=== PATIENT | male | born 1930 | race Caucasian/White ===

== ENCOUNTER 2016-07-05 05:46 | Emergency (ER) | payer OTHER, BC ==
[~2016-07-05 05:46] MED LIST: ARICEPT10 MG PO; ARIMIDEX1 MG PO; ASPIRIN EC LOW81 MG PO; BACTRIM1 TAB PO; CO Q10100 MG PO; COREG3.125 MG PO; COUMADIN1 MG PO; COUMADIN7.5 MG PO; DHEA PO; ENZYME DIGEST PO; FERROUS SULFAT324 M1 PO; FOLIC ACID1 MG PO; FUROSEMIDE20 MG PO; IPRATROPIUM BROMIDE/ IN; ISOSORBIDE MONO30 MG PO; LEVO-T25 MCG; LOVASTATIN40 MG PO; MULTIVITAMIN1 TAB PO; NEBULIZER; NITROSTAT0.4 MG SL; OMEGA 31000 MG PO; PREGNENOLONE PO; PRIMADONE PO; PRINIVIL10 MG PO; PROBIOTI1 PO; PULMICORT0.5 MG/2 M IN; SYNTHROID88 MCG PO; TESTIM1 % TOP; VITAMIN D-31000 UNIT PO; [UNRECOGNIZED DRUG - OTHER] PO; [UNRECOGNIZED DRUG - OTHER] PO; [UNRECOGNIZED DRUG - OTHER] PO
--- NOTE | 2016-07-05 08:02 | ED NURSING NOTES ---
Clinical Report - Nurses [facility] [address] [place] [address] 07/05/2016 5:46 Patient: RISHABH BAZZI TRIAGE Triage time 05:51. Acuity: LEVEL 3. Chief Complaint: FALL. 06:22. Alert. SEPSIS SCREEN: Sepsis Screen. Negative (no infection suspected/documented). JESSICA COMA SCORE: [place] Coma Scale: 15- eyes open spontaneously (4); best verbal response- oriented x 4 (5); best motor response- obeys commands (6). --06:22 Charanjit Caba R.N. 05:51 07/05/16. BP: 135/62. HR: 62. RR: 17. O2 saturation: 98%. Pain level now: cannot qualify. --06:22 Charanjit Caba R.N. Weight: 65.7 kg stated. Height/Length: 62 inches Per Patient. BMI: 26.5. --06:22 Charanjit Caba R.N. Medications Anastrozole Oral (Tablet 1 mg) 1/2 tablet, daily. Aricept Oral (Tablet 23 mg) 1 tablet, daily. Carvedilol Phosphate ER Oral 3.125mh, 2 x daily. Co Q 10 Oral (Capsule 100 mg), daily. DHEA Oral 60mg. Enzyme Digest Oral. Folic Acid Oral (Tablet 400 mcg) 1 tablet, daily. Furosemide Oral (Tablet 20 mg) 1 tablet, daily. Isosorbide Mononitrate ER Oral 30mg take 1/2 tab , daily. Levothyroxine Sodium Oral (Tablet 25 mcg) 1 tablet. Lisinopril Oral (Tablet 10 mg) 1/2 tablet, 2x a day. Lovastatin Oral (Tablet 40 mg) 1-1/2 tablets, daily. Melatonin Oral (Tablet 5 mg) 1 tablet, qhs. --06:01 Charanjit Caba RAndreaN. MiraLax Oral. Multivit. Nitroglycerin Translingual 1 tab, as needed. [place] xl. Optimal prostrate. Optimal relief. Pregnenlone 100mg, 2x a day. Primadone 25mg , daily (in am; 100mg in pm). Probiotic. Testosterone Enanthate Intramuscular. TMG (Trimethylglycine) Oral. Vessel protection. Vitamin D Oral (Capsule 1000 unit) 1 capsule, daily. Warfarin Sodium Oral 5 mg, daily (7.5mg // 5mg all other days). --06:01 Charanjit Caba R.N. Calcium Oral 1000mg , 2 x daily. --06:04 Charanjit Caba R.N. Cranberry Extract Oral. --06:05 Charanjit Caba R.N. Home oxygen . --08:39 Jake Gutierrez R.N. Medication/allergy information source: the patient's family. --06:22 Charanjit Caba R.N. Allergies Labetalol HCl. --06:01 Charanjit Caba R.N. History Arrived by private vehicle. Historian: patient. Accompanied by family. Primary physician (). ( Patient on home 02). Location of injuries: back and left elbow. ( Family reports that patient was getting onto the toilet and fell backwards onto the toilet and hit the toilet paper rodas yesterday in the AM , now family says he has a scratch on his back and his left elbow is swollen). Treatment GRAIN MANAGER: None. PAST MEDICAL HX: Tetanus status: up-to-date. Immunizations: up-to-date. SOCIAL HX: Former smoker, end date 1966. Occasional alcohol use. No drug use. No infectious disease exposure. ABUSE ASSESSMENT: No report of abuse. NUTRITIONAL RISK ASSESSMENT: The nutritional risk assessment revealed no deficiencies. LEARNING NEEDS ASSESSMENT: The learning needs assessment revealed no barriers. FALL RISK ASSESSMENT: Fall risk assessment completed. Risk factors identified include patient age greater than 65 years, history of fall and impairment of mobility. Fall interventions initiated. Patient placed on stretcher. Side rails up x2. Call light in reach of patient and family. Instructed not to get up without assistance. FUNCTIONAL ASSESSMENT: Functional assessment performed: requires assistance with the activities of daily living; uses walker; wears glasses; cognitive impairment- senile dementia. SKIN INTEGRITY ASSESSMENT: Skin integrity risk assessment completed. No skin integrity risk identified. --06:22 Charanjit Caba R.N. PROBLEMS: UTI - Urinary Tract Infection. Congestive Heart Failure. Acute Myocardial Infarction. Renal Insufficiency. CVA - Cerebrovascular Accident. Hypercholesterolemia. TIA - Transient Ischemic Attack. Fecal Impaction. Hypertension. --06:06 Charanjit Caba R.N. ADDITIONAL SURGERIES: Dental Surgery. Hernia Repair. Kidney stents. Pacemaker. --06:06 Charanjit Caba R.N. Interventions ID band on patient. To treatment room. --06:22 Charanjit Caba R.N. PHYSICAL ASSESSMENT 06:20. To room via wheelchair. Patient gowned. GENERAL / NEURO / PSYCH: Alert. RESPIRATORY: Respirations not labored. ( on 02 @ 2lts). EXTREMITIES: Neuro-vascular status intact to the extremity. Left elbow: swelling. SKIN: Skin intact. Skin is warm and dry. BACK: ( small scratch mid back). --06:20 Charanjit Caba R.N. NURSING PROGRESS NOTES 05:56 As pt was being assisted out of the wheelchair, pt was incontinant so was helped to the bathroom where pt's daughter helped pt get cleaned up. --05:58 Charanjit Caba R.N. 06:07. Two patient identifiers checked. Call light placed in reach. Side rails up x 2. Bed placed in lowest position. Brakes of bed on. Patient ready for evaluation- chart flagged. --06:25 Charanjit Caba R.N. Patient ID band checked for patient name and birthdate: patient confirmed. Blood samples drawn from the right antecubital space with syringe and 21g butterfly by tech per protocol ; labeled in presence of the patient and sent to lab: rainbow set. --06:36 Richard Miles ER Awning Craftsperson 07:16. Care transferred and report given (Nuris YEAGER). --07:27 Charanjit Caba R.N. 06:30 07/05/16. BP: 124/52. HR: 65. O2 saturation: 99% on nasal cannula at 2 liters/minute. --08:44 Jake Gutierrez R.N. 07:00 07/05/16. BP: 122/51. HR: 65. RR: 20. O2 saturation: 98% on nasal cannula at 2 liters/minute. --08:45 Jake Gutierrez R.N. 07:30 07/05/16. BP: 139/54. HR: 65. RR: 20. O2 saturation: 98% on nasal cannula at 2 liters/minute. --08:45 Jake Gutierrez R.N. DISPOSITION / DISCHARGE 08:39 07/05/16. Departure time: 829. Condition at departure: unchanged and stable. No learning barriers present. Discharge instructions provided and reviewed with the family. Family verbalized understanding. Written instructions provided in Danish. The patient was discharged by the physician. He was discharged home and accompanied by family. He left the Emergency Department in a wheelchair and via private vehicle. Family member driving. --08:40 Jake Gutierrez R.N. 08:15 07/05/16. BP: 126/56. HR: 65. RR: 20. O2 saturation: 96% on nasal cannula at 2 liters/minute. Temp: 98.5 F (oral). Quintanilla-Aburto pain scale: 4/10. --08:40 Jake Gutierrez R.N. Locked/Released at 07/06/2016 2:35 by Charanjit Caba R.N.
--- NOTE | 2016-07-05 08:02 | ED ORDER SUMMARY ---
..... Patient: RISHABH BAZZI OrderSheet [facility] VisitID: [id number] [address] [place] [address] 85y, M Registration Date/Time: 07/05/2016 ORDER SHEET Weight: 65.7 kg (stated) Allergies: Labetalol HCl GENERAL ORDERS: PT with INR Urgent (06:21 07/05/2016 Parvin JIMENEZ) (6:36 [facility] Manager Occupational) MEDICATION ORDERS: IV FLUIDS: ORDER SHEET NOTES: [Electronically signed by Charanjit Caba R.N. (02:35 07/06/2016)] [Electronically signed by Zaida Busby MD (16:31 07/10/2016)] [Electronically locked/signed by Charanjit Caba R.N. (02:35 07/06/2016)]
--- NOTE | 2016-07-05 08:02 | ED ORDER SUMMARY ---
..... Patient: RISHABH BAZZI OrderSheet [facility] VisitID: [id number] [address] [place] [address] 85y, M Registration Date/Time: 07/05/2016 ORDER SHEET Weight: 65.7 kg (stated) Allergies: Labetalol HCl GENERAL ORDERS: PT with INR Urgent (06:21 07/05/2016 Parvin JIMENEZ) (6:36 [facility] [place] [employer]) MEDICATION ORDERS: IV FLUIDS: ORDER SHEET NOTES: [Electronically signed by Charanjit Caba R.N. (02:35 07/06/2016)] [Electronically signed by Zaida Busby MD (16:31 07/10/2016)] [Electronically locked/signed by Charanjit Caba R.N. (02:35 07/06/2016)]
--- NOTE | 2016-07-05 08:02 | ED CLINICAL REPORT ---
Clinical Report - Physicians/Mid Levels [facility] [address] [place] [address] 07/05/2016 5:46 Patient: RISHABH BAZZI Time Seen: 06:07. Arrived- By private vehicle. Historian- patient. HISTORY OF PRESENT ILLNESS Chief Complaint: Injury to the left elbow. The injury happened yesterday. The patient sustained a direct blow. Occurred at home. Patient is experiencing mild pain. No other injury. ( Family states they noticed a swollen area on the tip of pt's elbow today. Pt states he has had full ROM. Pt is on Coumadin.). REVIEW OF SYSTEMS The patient has had swelling. No tingling, numbness, weakness, suspected foreign body or skin laceration. All systems otherwise negative, except as recorded above. PAST HISTORY Problems: Congestive Heart Failure. Acute Myocardial Infarction. Renal Insufficiency. CVA - Cerebrovascular Accident. Tremors. GI Bleeding. Immunizations. Hypercholesterolemia. TIA - Transient Ischemic Attack. Fecal Impaction. Constipation. Hypertension. Dementia. Additional Surgeries: Dental Surgery. Hernia Repair. Kidney stents. Pacemaker. Medications: Cranberry Extract Oral. Calcium Oral 1000mg , 2 x daily. MiraLax Oral. Multivit. Nitroglycerin Translingual 1 tab, as needed. [place] xl. Optimal prostrate. Optimal relief. Pregnenlone 100mg, 2x a day. Primadone 25mg , daily (in am; 100mg in pm). Probiotic. Testosterone Enanthate Intramuscular. TMG (Trimethylglycine) Oral. Vessel protection. Vitamin D Oral (Capsule 1000 unit) 1 capsule, daily. Warfarin Sodium Oral 5 mg, daily (7.5mg M// 5mg all other days). Anastrozole Oral (Tablet 1 mg) 1/2 tablet, daily. Aricept Oral (Tablet 23 mg) 1 tablet, daily. Carvedilol Phosphate ER Oral 3.125mh, 2 x daily. Co Q 10 Oral (Capsule 100 mg), daily. DHEA Oral 60mg. Enzyme Digest Oral. Folic Acid Oral (Tablet 400 mcg) 1 tablet, daily. Furosemide Oral (Tablet 20 mg) 1 tablet, daily. Isosorbide Mononitrate ER Oral 30mg take 1/2 tab , daily. Levothyroxine Sodium Oral (Tablet 25 mcg) 1 tablet. Lisinopril Oral (Tablet 10 mg) 1/2 tablet, 2x a day. Lovastatin Oral (Tablet 40 mg) 1-1/2 tablets, daily. Melatonin Oral (Tablet 5 mg) 1 tablet, qhs. Allergies: Labetalol HCl. SOCIAL HISTORY Never smoker. No alcohol use or drug use. ADDITIONAL NOTES The nursing notes have been reviewed. PHYSICAL EXAM Vital Signs: 07/05/2016 05:51 BP: 135/62. HR: 62. RR: 17. O2 saturation: 98%. Have been reviewed. Appearance: Alert. Oriented X3. No acute distress. Head: Head atraumatic. Eyes: Pupils equal, round and reactive to light. Eyes normal inspection. ENT: Nose normal. Neck: Neck supple. CVS: Pulses normal. Respiratory: No respiratory distress. Skin: Skin intact. Skin warm and dry. Normal skin color. Normal skin turgor. Extremities: Left elbow: mild tenderness and moderate swelling located in the area of the olecranon. Neurovascular intact distally. No erythema, laceration, abrasion, ecchymosis or puncture wound. No foreign body or deformity. No joint effusion or limitation in ROM. Upper extremity otherwise negative. Extremities otherwise negative. Neuro, Vascular and Tendons: Vascular status intact. Sensation intact. Motor intact. Tendon function intact. Neuro: No motor deficit. No sensory deficit. (Grossly intact.). LABS, X-RAYS, AND EKG Laboratory Tests: PT with INR: (EVARISTO: 07/05/2016 06:35) ( MsgRcvd 07/05/2016 06:47) Final results Test Result Flag Units (Reference) INR 2.5 H (0.8-1.2) Low Intensity Therapy: INR 1.5-2.0 PT range 18.5-23.1Mod.Intensity Therapy: INR 2.0-3.0 PT range 23.1-31.5High Intensity Therapy: INR 2.5-3.5 PT range 27.4-35.5High Intensity Therapy 2: INR 3.0-4.0 PT range 31.5-39.3 . Pulse Oximetry: 07/05/2016 05:51 O2 saturation: 98%. (FIO2 - room air). Interpretation: normal. PROGRESS AND PROCEDURES Course of Care: D/w family: there is no evidence of infection. The pt has full ROM of his elbow without significant discomfort, and I do not believe the pt has a fx. Pt has an olecranon bursitis, which may have arisen from the minor trauma to the elbow, combined with the pt's anticoagulated status. INR today is 2.5. No emergent condition identified. Patient and family counseled in person regarding the patient's stable condition, test results, diagnosis and need for follow-up. Concerns were addressed. Old medical records reviewed. Disposition: Discharged. Condition: stable. CLINICAL IMPRESSION Traumatic left olecranon bursitis. No bursitis with infection. INSTRUCTIONS Apply ice for 15-20 minutes three times a day as needed and until better. Don't apply ice directly to skin and don't use while asleep. (Your INR is 2.5.). Warnings: GENERAL WARNINGS: Return or contact your physician immediately if your condition worsens or changes unexpectedly, if not improving as expected, or if other problems arise. Your Current Medications: CONTINUE TAKING THE FOLLOWING MEDICATIONS: Anastrozole Oral : Tablet 1 mg, 1/2 tablet daily. Aricept Oral : Tablet 23 mg, 1 tablet daily. Calcium Oral : 1000mg 2 x daily. Carvedilol Phosphate ER Oral : 3.125mh 2 x daily. Co Q 10 Oral : Capsule 100 mg, daily. Cranberry Extract Oral. DHEA Oral : 60mg. Enzyme Digest Oral. Folic Acid Oral : Tablet 400 mcg, 1 tablet daily. Furosemide Oral : Tablet 20 mg, 1 tablet daily. Isosorbide Mononitrate ER Oral : 30mg take 1/2 tab daily. Levothyroxine Sodium Oral : Tablet 25 mcg, 1 tablet. Lisinopril Oral : Tablet 10 mg, 1/2 tablet 2x a day. Lovastatin Oral : Tablet 40 mg, 1-1/2 tablets daily. Melatonin Oral : Tablet 5 mg, 1 tablet qhs. MiraLax Oral. Multivit*. Nitroglycerin Translingual : 1 tab, prn. [place] xl*. Optimal prostrate*. Optimal relief*. Pregnenlone* : 100mg 2x a day. Primadone* : 25mg daily, in am; 100mg in pm. Probiotic*. Testosterone Enanthate Intramuscular. TMG (Trimethylglycine) Oral. Vessel protection*. Vitamin D Oral : Capsule 1000 unit, 1 capsule daily. Warfarin Sodium Oral : 5 mg daily, 7.5mg // 5mg all other days. Follow-up: Follow up with your doctor as needed. Understanding of the discharge instructions verbalized by patient. (Electronically signed by Zaida Busby MD 07/10/2016 16:31)
--- NOTE | 2016-07-10 16:31 | ED MED RECONCILIATION SUMMARY ---
Patient: RISHABH BAZZI Medication Reconciliation Report [facility] VisitID: [id number] [place] [address] 85y, M Registration Date/Time: 07/05/2016 Weight: 65.7 kg Height/Length: 62 in. BMI: 26.5 ALLERGIES: Labetalol HCl The patient's Home Medications are listed below: CONTINUE TAKING THE FOLLOWING MEDICATIONS: Anastrozole Oral (1 mg) 1/2 tablet, daily Aricept Oral (23 mg) 1 tablet, daily Calcium Oral 1000mg , 2 x daily Carvedilol Phosphate ER Oral 3.125mh, 2 x daily Co Q 10 Oral (100 mg), daily Cranberry Extract Oral DHEA Oral 60mg Enzyme Digest Oral Folic Acid Oral (400 mcg) 1 tablet, daily Furosemide Oral (20 mg) 1 tablet, daily Isosorbide Mononitrate ER Oral 30mg take 1/2 tab , daily Levothyroxine Sodium Oral (25 mcg) 1 tablet Lisinopril Oral (10 mg) 1/2 tablet, 2x a day Lovastatin Oral (40 mg) 1-1/2 tablets, daily Melatonin Oral (5 mg) 1 tablet, qhs MiraLax Oral Multivit Nitroglycerin Translingual 1 tab [place] xl Optimal prostrate Optimal relief Pregnenlone 100mg, 2x a day Primadone 25mg , daily, in am; 100mg in pm Probiotic Testosterone Enanthate Intramuscular TMG (Trimethylglycine) Oral Vessel protection Vitamin D Oral (1000 unit) 1 capsule, daily Warfarin Sodium Oral 5 mg, daily, 7.5mg M/W/F5mg all other days THE FOLLOWING MEDICATIONS NEED TO BE RECONCILED: Home oxygen The source(s) of the original Home Medication information: patient's family member The following Medications were given to the patient in the Emergency Department: None. The following Medications were prescribed to the patient: None.
--- NOTE | 2016-07-10 16:31 | ED MAR SUMMARY ---
..... Medication Administration Record [facility] [address] [place] [place] [address] Patient: RISHABH BAZZI Visit ID: [id number] 85y, M Weight: 65.7 kg Height/Length: 62 in BMI: 26.5 ALLERGIES: Labetalol HCl
--- NOTE | 2016-07-10 16:31 | ED DISCHARGE INSTRUCTIONS ---
Patient: RISHABH BAZZI General Instructions [facility] VisitID: [id number] [place] [address] 85y, M Registration Date/Time: 07/05/2016 Traumatic left olecranon bursitis. No bursitis with infection. INSTRUCTIONS Apply ice for 15-20 minutes three times a day as needed and until better. Don't apply ice directly to skin and don't use while asleep. (Your INR is 2.5.). Warnings: GENERAL WARNINGS: Return or contact your physician immediately if your condition worsens or changes unexpectedly, if not improving as expected, or if other problems arise. Your Current Medications: CONTINUE TAKING THE FOLLOWING MEDICATIONS: Anastrozole Oral : Tablet 1 mg, 1/2 tablet daily. Aricept Oral : Tablet 23 mg, 1 tablet daily. Calcium Oral : 1000mg 2 x daily. Carvedilol Phosphate ER Oral : 3.125mh 2 x daily. Co Q 10 Oral : Capsule 100 mg, daily. Cranberry Extract Oral. DHEA Oral : 60mg. Enzyme Digest Oral. Folic Acid Oral : Tablet 400 mcg, 1 tablet daily. Furosemide Oral : Tablet 20 mg, 1 tablet daily. Isosorbide Mononitrate ER Oral : 30mg take 1/2 tab daily. Levothyroxine Sodium Oral : Tablet 25 mcg, 1 tablet. Lisinopril Oral : Tablet 10 mg, 1/2 tablet 2x a day. Lovastatin Oral : Tablet 40 mg, 1-1/2 tablets daily. Melatonin Oral : Tablet 5 mg, 1 tablet qhs. MiraLax Oral. Multivit*. Nitroglycerin Translingual : 1 tab, prn. [place] xl*. Optimal prostrate*. Optimal relief*. Pregnenlone* : 100mg 2x a day. Primadone* : 25mg daily, in am; 100mg in pm. Probiotic*. Testosterone Enanthate Intramuscular. TMG (Trimethylglycine) Oral. Vessel protection*. Vitamin D Oral : Capsule 1000 unit, 1 capsule daily. Warfarin Sodium Oral : 5 mg daily, 7.5mg // 5mg all other days. Follow-up: Follow up with your doctor as needed. Understanding of the discharge instructions verbalized by patient. ADDITIONAL INFORMATION Bursitis The larger joints of the body are surrounded bybursa. These are small, flat fluid-filled sacs which help the gliding motion of the muscles and tendons over the joints. Bursitis is an inflammation of the bursa due to injury, overuse of the joint, or infection of the bursa itself. Symptoms include pain and tenderness over a joint that is made worse with movement. Bursitis is treated with an anti-inflammatory medicine and by resting the joint. More severe cases require injection of medicine directly into the bursa. Home Care: Apply an ice pack (ice cubes in a plastic bag, wrapped in a towel) over the injured area for 20 minutes every 1-2 hours the first day. Continue this 3-4 times a day until the pain and swelling improves. Rest the painful joint and protect it from movement. This will allow the inflammation to heal faster. You may take ibuprofen (Motrin, Advil) or naproxen (Aleve, Naprosyn) to treat pain and inflammation, unless another medicine was prescribed. If you can't take these medicines, acetaminophen (Tylenol) may help with the pain, but does not treat inflammation. [NOTE: If you have chronic liver or kidney disease or ever had a stomach ulcer or GI bleeding, talk with your doctor before using these medicines.] As your symptoms improve, begin gradual motion at the joint. Do not overuse the joint, which may cause the symptoms to flare up again. Follow Up With Your Doctor If Not Improving After Three Days Of Treatment. Get Prompt Medical Attention If Any Of The Following Occur: Redness over the painful area Increasing pain or swelling at the joint Fever of 100.4F (38C) or higher, or as directed by your healthcare provider You have been given the following additional information: Bursitis (Electronically signed by Zaida Busby MD 07/10/2016 16:31)
--- NOTE | 2016-07-10 16:31 | ED MAR SUMMARY ---
..... Medication Administration Record [facility] [address] [place] [place] [address] Patient: RISHABH BAZZI Visit ID: [id number] 85y, M Weight: 65.7 kg Height/Length: 62 in BMI: 26.5 ALLERGIES: Labetalol HCl
--- NOTE | 2016-07-10 16:31 | ED MED RECONCILIATION SUMMARY ---
Patient: RISHABH BAZZI Medication Reconciliation Report [facility] VisitID: [id number] [place] [address] 85y, M Registration Date/Time: 07/05/2016 Weight: 65.7 kg Height/Length: 62 in. BMI: 26.5 ALLERGIES: Labetalol HCl The patient's Home Medications are listed below: CONTINUE TAKING THE FOLLOWING MEDICATIONS: Anastrozole Oral (1 mg) 1/2 tablet, daily Aricept Oral (23 mg) 1 tablet, daily Calcium Oral 1000mg , 2 x daily Carvedilol Phosphate ER Oral 3.125mh, 2 x daily Co Q 10 Oral (100 mg), daily Cranberry Extract Oral DHEA Oral 60mg Enzyme Digest Oral Folic Acid Oral (400 mcg) 1 tablet, daily Furosemide Oral (20 mg) 1 tablet, daily Isosorbide Mononitrate ER Oral 30mg take 1/2 tab , daily Levothyroxine Sodium Oral (25 mcg) 1 tablet Lisinopril Oral (10 mg) 1/2 tablet, 2x a day Lovastatin Oral (40 mg) 1-1/2 tablets, daily Melatonin Oral (5 mg) 1 tablet, qhs MiraLax Oral Multivit Nitroglycerin Translingual 1 tab [place] xl Optimal prostrate Optimal relief Pregnenlone 100mg, 2x a day Primadone 25mg , daily, in am; 100mg in pm Probiotic Testosterone Enanthate Intramuscular TMG (Trimethylglycine) Oral Vessel protection Vitamin D Oral (1000 unit) 1 capsule, daily Warfarin Sodium Oral 5 mg, daily, 7.5mg M/W/F5mg all other days THE FOLLOWING MEDICATIONS NEED TO BE RECONCILED: Home oxygen The source(s) of the original Home Medication information: patient's family member The following Medications were given to the patient in the Emergency Department: None. The following Medications were prescribed to the patient: None.
== END 2016-07-05 08:30 | disposition home or self-care (01) ==
LOC: ED SRH 05:46
DX: M70.22 Olecranon bursitis, left elbow (principal); Z86.73 Personal history of transient ischemic attack (TIA), and cerebral infarction without residual deficits; W18.12XA Fall from or off toilet with subsequent striking against object, initial encounter; Y93.89 Activity, other specified; Y99.9 Unspecified external cause status; Y92.012 Bathroom of single-family (private) house as the place of occurrence of the external cause; I10 Essential (primary) hypertension; Z79.899 Other long term (current) drug therapy; Z88.8 Allergy status to other drugs, medicaments and biological substances; Z79.01 Long term (current) use of anticoagulants
CPT/HCPCS: 94060

== ENCOUNTER 2016-11-01 22:02 | Emergency (ER) | payer OTHER, BC ==
--- NOTE | 2016-11-02 01:05 | ED ORDER SUMMARY ---
..... Patient: RISHABH BAZZI OrderSheet [facility] VisitID: [id number] [place] [address] 86y, M Registration Date/Time: 11/01/2016 ORDER SHEET Weight: 65.7 kg (stated) Allergies: Labetalol HCl GENERAL ORDERS: CBC w Diff Urgent (22:32 11/01/2016 Parvin JIMENEZ) (Ack 22:38 AMcQuoid ER Tech1) (22:59 KPage-Kuchan R.N.) CMP Urgent (22:32 11/01/2016 Parvin JIMENEZ) (Ack 22:38 AMcQuoid ER Tech1) (22:59 KPage-Kuchan R.N.) UA-Culture if indicated Urgent (22:32 11/01/2016 Parvin JIMENEZ) (Ack 22:38 AMcQuoid ER Tech1) (22:59 KPage-Kuchan R.N.) Lipase Urgent (22:32 11/01/2016 Parvin JIMENEZ) (Ack 22:38 AMcQuoid ER Tech1) (22:58 KPage-Kuchan R.N.) PT with INR Urgent (22:57 11/01/2016 Parvin JIMENEZ) (Ack 22:58 AMcQuoid ER Tech1) (23:00 KPage-Kuchan R.N.) TSH Urgent (22:57 11/01/2016 Parvin JIMENEZ) (Ack 22:58 AMcQuoid ER Tech1) (23:00 KPage-Kuchan R.N.) CT Abd/Pel w Cont (No) (N/A) Urgent (23:51 11/01/2016 Parvin JIMENEZ) (Cancelled: Other23:51 Parvin JIMENEZ) CT Abd/Pel wo Cont Urgent (23:52 11/01/2016 Parvin JIMENEZ) (Ack 0:00 AMcQuoid ER Tech1) (0:18 RFay) MEDICATION ORDERS: IV FLUIDS: IV Saline Lock (22:32 11/01/2016 Parvin JIMENEZ) (22:58 KPage-Kuchan R.N.) ORDER SHEET NOTES: [Electronically signed by Rain Rosales R.N. (01:35 11/02/2016)] [Electronically signed by Zaida Busby MD (08:38 11/02/2016)] [Electronically locked/signed by Rain Rosales R.N. (01:35 11/02/2016)]
--- NOTE | 2016-11-02 01:05 | ED ORDER SUMMARY ---
..... Patient: RISHABH BAZZI OrderSheet Formerly [facility] VisitID: [id number] [place] [address] 86y, M Registration Date/Time: 11/01/2016 ORDER SHEET Weight: 65.7 kg (stated) Allergies: Labetalol HCl GENERAL ORDERS: CBC w Diff Urgent (22:32 11/01/2016 Parvin JIMENEZ) (Ack 22:38 AMcQuoid ER Tech1) (22:59 KPage-Kuchan R.N.) CMP Urgent (22:32 11/01/2016 Parvin JIMENEZ) (Ack 22:38 AMcQuoid ER Tech1) (22:59 KPage-Kuchan R.N.) UA-Culture if indicated Urgent (22:32 11/01/2016 Parvin JIMENEZ) (Ack 22:38 AMcQuoid ER Tech1) (22:59 KPage-Kuchan R.N.) Lipase Urgent (22:32 11/01/2016 Parvin JIMENEZ) (Ack 22:38 AMcQuoid ER Tech1) (22:58 KPage-Kuchan R.N.) PT with INR Urgent (22:57 11/01/2016 Parvin JIMENEZ) (Ack 22:58 AMcQuoid ER Tech1) (23:00 KPage-Kuchan R.N.) TSH Urgent (22:57 11/01/2016 Parvin JIMENEZ) (Ack 22:58 AMcQuoid ER Tech1) (23:00 KPage-Kuchan R.N.) CT Abd/Pel w Cont (No) (N/A) Urgent (23:51 11/01/2016 Parvin JIMENEZ) (Cancelled: Other23:51 Parvin JIMENEZ) CT Abd/Pel wo Cont Urgent (23:52 11/01/2016 Parvin JIMENEZ) (Ack 0:00 AMcQuoid ER Tech1) (0:18 RFay) MEDICATION ORDERS: IV FLUIDS: IV Saline Lock (22:32 11/01/2016 Parvin JIMENEZ) (22:58 KPage-Kuchan R.N.) ORDER SHEET NOTES: [Electronically signed by Rain Rosales R.N. (01:35 11/02/2016)] [Electronically signed by Zaida Busby MD (08:38 11/02/2016)] [Electronically locked/signed by Rain Rosales R.N. (01:35 11/02/2016)]
--- NOTE | 2016-11-02 01:05 | ED CLINICAL REPORT ---
Clinical Report - Physicians/Mid Levels [facility] [address] [place] [place] [address] 11/01/2016 22:05 Patient: RISHABH BAZZI Time Seen: 22:14. Arrived- By private vehicle. Historian- patient. HISTORY OF PRESENT ILLNESS Chief Complaint: ABDOMINAL PAIN. At its maximum, severity described as moderate. When seen in the E.D., severity described as moderate. Modifying factors. Not worsened by anything. Not relieved by anything. No radiation. It is described as located in the right abdomen and right lower quadrant. This started about 3 days ago, but worse tonight and is still present. The patient has had nausea. No loss of appetite, vomiting or diarrhea. Similar symptoms previously: None. Recent medical care: Not recently seen/assessed. REVIEW OF SYSTEMS No constipation, black stools, hematemesis, difficulty with urination or pain with urination. No urinary frequency, bloody stools, fever, headache or sore throat. No blurred vision, chest pain, difficulty breathing, cough or joint pain. No skin rash, chills or back pain. All systems otherwise negative, except as recorded above. PAST HISTORY Problems: Bursitis. Congestive Heart Failure. Acute Myocardial Infarction. Renal Insufficiency. CVA - Cerebrovascular Accident. Tremors. Diarrhea. GI Bleeding. Immunizations. Hypercholesterolemia. TIA - Transient Ischemic Attack. Fecal Impaction. Constipation. Hypertension. Dementia. Additional Surgeries: Cholecystectomy. Dental Surgery. Hernia Repair. Kidney stents. Pacemaker. Medications: Isosorbide Mononitrate Oral. Warfarin Sodium Oral. Primadone. Lovastatin Oral. Aspirin Oral. Aricept Oral. Carvedilol Phosphate ER Oral. Furosemide Oral. Nitrofurantoin Oral. Anastrozole Oral. Testosterone. Primidone Oral. Levothyroxine Sodium Oral. Lisinopril Oral. Allergies: Labetalol HCl. SOCIAL HISTORY Smoker- current status unknown. No alcohol use or drug use. ADDITIONAL NOTES The nursing notes have been reviewed. PHYSICAL EXAM Vital Signs: 11/01/2016 22:22 BP: 167/65. HR: 61. RR: 17. O2 saturation: 100%. Temp: 97.7 F. Pain level now: 7/10. Have been reviewed. Appearance: Alert. No acute distress. Eyes: Pupils equal, round and reactive to light. Eyes normal inspection. ENT: Nose normal. Neck: Normal inspection. CVS: Normal heart rate and rhythm. Heart sounds normal. Pulses normal. Respiratory: No respiratory distress. Breath sounds normal. Abdomen: Soft. Moderate tenderness in the right side of the abdomen and right lower quadrant. No guarding or rebound tenderness. Back: Normal inspection. Skin: Skin warm and dry. Normal skin color. No rash. Normal skin turgor. Extremities: No lower extremity edema. Neuro: No motor deficit. No sensory deficit. (Pt answers simple questions appropriately.). LABS, X-RAYS, AND EKG Abdominal CT: Normal aorta. Normal liver, spleen, pancreas, adrenals and kidneys. Bladder normal. Appendix normal. No mass. No free fluid. No bony lesion. No diverticulitis. Patient has scattered diverticuli. His gallbladder is surgically absent. Study type: abdomen and pelvis. Abdominal CT performed without contrast. The study was independently viewed by me, interpreted by the radiologist and contemporaneously by me and discussed with the radiologist. Prior studies were not available for comparison. Laboratory Tests: UA-Culture if indicated: (EVARISTO: 11/01/2016 00:12) ( MsgRcvd 11/02/2016 00:35) Final results Test Result Flag Units (Reference) URINE COLOR YELLOW URINE APPEARANCE CLEAR URINE GLUCOSE NEGATIVE (NEGATIVE) URINE BILIRUBIN NEGATIVE (NEGATIVE) URINE KETONE NEGATIVE (NEGATIVE) URINE SPECIFIC GRAVITY 1.020 (1.010-1.030) URINE PH 6.5 (5.0-8.0) URINE PROTEIN TRACE (NEGATIVE) URINE UROBILINOGEN 0.2 EU/dL (0.2-1.0) URINE NITRITE NEGATIVE (NEGATIVE) URINE BLOOD NEGATIVE (NEGATIVE) URINE LEUK ESTERASE NEGATIVE (NEGATIVE) URINE RBC 0-1 rbc/hpf (0-1) URINE WBC NONE SEEN wbc/hpf (0-1) URINE EPITHELIAL CELLS 0-1 EPI/hpf (0-5) URINE BACTERIA FEW (1+) (NONE SEEN) URINE COMMENT CULT NOT INDICATED 1-3 HYALINE CAST. 1+ AMORPHOUS URATES.URINE CULTURES ARE SET-UP BASED ON THE FOLLOWING CRITERIA:POSITIVE NITRITEPOSITIVE LEUKOCYTE ESTERASEGREATER THAN 10 WHITE BLOOD CELLSMODERATE (2+) OR GREATER BACTERIA CBC w Diff: (EVARISTO: 11/01/2016 22:51) ( [facility] 11/01/2016 23:55) Final results Test Result Flag Units (Reference) WHITE BLOOD COUNT 6.0 K/uL (4.5-11.5) RED BLOOD COUNT 4.77 M/uL (4.50-5.90) HEMOGLOBIN 14.9 gm/dL (13.5-17.5) HEMATOCRIT 45.5 % (41.0-53.0) MEAN CELL VOLUME 96 fL (80-100) MEAN CORPUSCULAR HGB 31 pg (26-34) MEAN CORPUSCULAR HGB CONC 33 g/dL (31-37) RED CELL DISTRIBUTION WIDTH 14.1 % (11.6-14.8) PLATELET COUNT 153 K/uL (150-400) POLY % 73 % (50-75) BAND % 0 % (0-8) LYMPH 18 L % (25-40) MONO 5 % (3-14) EOSINOPHIL % 4 % (0-4) BASOPHIL % 0 % (0-2) METAMYELOCYTE % 0 % (0-1) MYELOCYTE 0 % (0-1) OTHER CELL TYPE 0 PT with INR: (EVARISTO: 11/01/2016 22:51) ( [facility] 11/01/2016 23:25) Final results Test Result Flag Units (Reference) INR 2.0 H (0.8-1.2) Low Intensity Therapy: INR 1.5-2.0 PT range 18.5-23.1Mod.Intensity Therapy: INR 2.0-3.0 PT range 23.1-31.5High Intensity Therapy: INR 2.5-3.5 PT range 27.4-35.5High Intensity Therapy 2: INR 3.0-4.0 PT range 31.5-39.3 TSH: (EVARISTO: 11/01/2016 22:51) ( [facility] 11/01/2016 23:45) Final results Test Result Flag Units (Reference) THYROID STIMULATING HORMONE 1.946 uIU/mL (0.30-3.74) CMP: (EVARISTO: 11/01/2016 22:51) ( MsgRcvd 11/01/2016 23:34) Final results Test Result Flag Units (Reference) GLUCOSE 118 H mg/dL (70-110) BUN 39 H mg/dL (7-18) CREATININE 1.6 H mg/dL (0.6-1.3) Estimated GFR 43.57 mL/min Estimated GFR- 52.81 mL/min Note: Persistent reduction over 3 months in eGFR<60 mL/min/1.73 m2 defines CKD. Patients with eGFR values>=60 mL/min/1.73 m2 may also have CKD if evidence ofpersistent proteinuria. Additional information may be foundat www.kidney.org. SODIUM 147 H mmol/L (136-145) POTASSIUM 4.6 mmol/L (3.5-5.1) CHLORIDE 108 H mmol/L (98-107) CARBON DIOXIDE 31 mmol/L (21-32) CALCIUM 9.4 mg/dL (8.5-10.1) TOTAL PROTEIN 7.6 g/dL (6.4-8.2) ALBUMIN 3.5 g/dL (3.3-5.0) BILIRUBIN, TOTAL 0.3 mg/dL (0.0-1.0) ALKALINE PHOSPHATASE 93 U/L (46-116) AST (SGOT) 15 U/L (15-37) ALT (SGPT) 29 U/L (12-78) LIPASE 112 U/L (73-393) . Pulse Oximetry: 11/01/2016 22:22 O2 saturation: 100%. (FIO2 - room air). Interpretation: normal. PROGRESS AND PROCEDURES Course of Care: Patient was worked up for his right lower quadrant abdominal pain. He was not nauseated at the time of my evaluation. Workup, including labs and CT, was found to be unremarkable. No emergent condition was identified. Family counseled in person regarding the patient's stable condition, test results, diagnosis and need for follow-up. Concerns were addressed. Old medical records reviewed. Disposition: Discharged. Condition: stable and improved. CLINICAL IMPRESSION Acute right lower quadrant abdominal pain of unknown cause. INSTRUCTIONS Drink plenty of fluids. (The labs urinalysis and CT scan was good. No emergent cause of your abdominal pain has been found.). Warnings: GENERAL WARNINGS: Return or contact your physician immediately if your condition worsens or changes unexpectedly, if not improving as expected, or if other problems arise. Your Current Medications: CONTINUE TAKING THE FOLLOWING MEDICATIONS: Anastrozole Oral. Aricept Oral. Aspirin Oral. Carvedilol Phosphate ER Oral. Furosemide Oral. Isosorbide Mononitrate Oral. Levothyroxine Sodium Oral. Lisinopril Oral. Lovastatin Oral. Nitrofurantoin Oral. Primadone*. Primidone Oral. Testosterone*. Warfarin Sodium Oral. Follow-up: Follow up with your doctor in four days if not better. Understanding of the discharge instructions verbalized by patient and family. (Electronically signed by Zaida Busby MD 11/02/2016 8:38)
--- NOTE | 2016-11-02 01:05 | ED NURSING NOTES ---
Clinical Report - Nurses [facility] [address] [place] [address] 11/01/2016 22:05 Patient: RISHABH BAZZI TRIAGE Triage time 22:Nov 01 2016. Chief Complaint: (pt bib daughter when getting him up pt had "his pants open and was complaining of pain"). Alert. SEPSIS SCREEN: Sepsis Screen: negative. Negative (no infection suspected/documented). --22:36 Desi Olivas R.N. 22:22 11/01/16. BP: 167/65. HR: 61. RR: 17. O2 saturation: 100%. Temp: 97.7 F. Pain level now: 01/04. --22:36 Desi Olivas R.N. Weight: 65.7 kg stated. Height/Length: 62 inches Per Patient. BMI: 26.5. --22:29 Desi Olivas R.N. Medications Lisinopril Oral. --22:45 Desi Olivas R.N. Levothyroxine Sodium Oral. --22:45 Desi Olivas R.N. Primidone Oral. --22:45 Desi Olivas R.N. Testosterone. --22:46 Desi Olivas R.N. Anastrozole Oral. --22:46 Desi Olivas R.N. Nitrofurantoin Oral. --22:48 Desi Olivas R.N. Furosemide Oral. --22:48 Desi Olivas R.N. Carvedilol Phosphate ER Oral. --22:48 Desi Olivas R.N. Aricept Oral. --22:49 Desi Olivas R.N. Aspirin Oral. --22:49 Desi Olivas R.N. Lovastatin Oral. --22:49 Desi Olivas R.N. Primadone. --22:50 Desi Olivas R.N. Warfarin Sodium Oral. --22:50 Desi Olivas R.N. Isosorbide Mononitrate Oral. --22:50 Desi Olivas R.N. Allergies Labetalol HCl. --22:25 Desi Olivas R.N. History Arrived by private vehicle. Historian: family. Accompanied by family. This started just prior to arrival. Treatment PER DIEM CLERK: None. PAST MEDICAL HX: Immunizations: up-to-date. SOCIAL HX: Smoker- current status unknown. No alcohol use or drug use. No recent travel. No infectious disease exposure. No known contact with a sick individual. ABUSE ASSESSMENT: No report of abuse. NUTRITIONAL RISK ASSESSMENT: The nutritional risk assessment revealed no deficiencies. FALL RISK ASSESSMENT: Fall risk assessment completed. Risk factors identified include patient medications, age greater than 65 years, history of fall and impairment of mobility, hearing and cognition. Fall interventions initiated. Patient placed on stretcher. Side rails up x2. Brakes on Bed in low position. Patient visible from nurses' station and identified as a fall risk by ID band. Family at bedside. Call light in reach of patient and family. Instructed not to get up without assistance. FUNCTIONAL ASSESSMENT: Functional assessment performed: requires total care with the activities of daily living; wears glasses. uses home O2. LEARNING NEEDS ASSESSMENT: (learning through family). SCHWAB FALL SCALE: Schwab Fall Scale Score: 135 (45 or greater = High Risk). The patient has a history of falling (immediate or within the last 3 months), a secondary diagnosis, IV therapy/Heparin lock in place, ambulates using furniture, forgets limitations. The patient's gait is weak and impaired during transfer. --22:36 Desi Olivas R.N. PROBLEMS: Bursitis. Abdominal Pain. Chest Pain. UTI - Urinary Tract Infection. Congestive Heart Failure. Acute Myocardial Infarction. Renal Insufficiency. CVA - Cerebrovascular Accident. Tremors. Fall. Diarrhea. GI Bleeding. Immunizations. Hypercholesterolemia. TIA - Transient Ischemic Attack. Fecal Impaction. Constipation. Hypertension. Dementia. --22:52 Desi Olivas R.N. ADDITIONAL SURGERIES: Cholecystectomy. Hernia Repair. Kidney stents. Pacemaker. --22:52 Desi Olivas R.N. Interventions ID and allergy band on patient. --22:36 Desi Olivas R.N. PHYSICAL ASSESSMENT To room via wheelchair. Patient gowned. ( pt uses home O2 at 2L, pt has pacemaker in left upper chest, underlying rhythm per family afib). GENERAL / NEURO / PSYCH: Alert. Appears in no acute distress. The patient is disoriented to person. HEENT: Mucous membranes are pink. RESPIRATORY: Respirations not labored. Breath sounds within normal limits. CVS: Capillary refill less than 2 seconds. GI / : Abdomen soft and nontender. Bowel sounds within normal limits. SKIN: Skin is warm and dry. --22:38 Desi Olivas R.N. NURSING PROGRESS NOTES Pulse oximeter and NIBP monitor placed on patient; monitor alarms on. Patient gowned. Head of bed elevated. Reassurance given. Two patient identifiers checked. Call light placed in reach. Side rails up x 2. Bed placed in lowest position. Brakes of bed on. Patient ready for evaluation- chart flagged. --22:38 Desi Olivas R.N. 22:53 11/01/2016 Site #1 started via IV in the right forearm with an 20g angiocath; one attempt. Blood drawn: rainbow set. Labeled in the presence of the patient and sent to the lab. Saline lock flushed with 10 mL saline (placed by Rain). --22:58 Desi Olivas R.N. Patient transported to radiology by stretcher with [employer]. (00:Nov 02 2016). --00:07 Hermelinda Godinez 00:41 11/02/16. BP: 137/56. HR: 59. RR: 18. O2 saturation: 98%. --00:42 Desi Olivas R.N. Patient identifiers checked. Call light placed in reach. Side rails up x 2. Bed placed in lowest position. Brakes of bed on. Patient waiting for CT results. ( multiple family members at bedside, waiting ct results for plans of dispo from ED). --00:42 Desi Olivas R.N. 01:32 11/02/2016 IV Saline Lock Drip IV Discontinued: discontinued upon discharge. Total amount infused: 0 mL. IV patency established. IV site checked: no pain, redness, or swelling. IV flushed thoroughly. --01:33 Rain Rosales R.N. 01:33 11/02/2016 Site #1 removed upon discharge. Catheter intact. Manual pressure and bandage applied. --01:33 Rain Rosales R.N. DISPOSITION / DISCHARGE Condition at departure: improved and stable. Learning barriers present. Ability to learn limited by dementia; teaching performed with the family. Discharge instructions provided and reviewed with the family. Family verbalized understanding. Written instructions provided in Bengali. The patient was discharged home and accompanied by family. He left the Emergency Department in a wheelchair and via private vehicle. Family member driving. --01:34 Rain Rosales R.N. 01:33 11/02/16. BP: 130/57 taken on the left arm, while sitting. HR: 59 (regular and bradycardic). RR: 16. O2 saturation: 98% on nasal cannula at 2 liters/minute. Temp: deferred. Pain level now: 0/10. --01:34 Rain Rosales R.N. Departure time: 131. --01:35 Rain Rosales R.N. Locked/Released at 11/02/2016 1:35 by Rain Rosales R.N.
--- NOTE | 2016-11-02 01:05 | ED NURSING NOTES ---
Clinical Report - Nurses [facility] [address] [place] [address] 11/01/2016 22:05 Patient: RISHABH BAZZI TRIAGE Triage time 22:Nov 01 2016. Chief Complaint: (pt bib daughter when getting him up pt had "his pants open and was complaining of pain"). Alert. SEPSIS SCREEN: Sepsis Screen: negative. Negative (no infection suspected/documented). --22:36 eDsi Olivas R.N. 22:22 11/01/16. BP: 167/65. HR: 61. RR: 17. O2 saturation: 100%. Temp: 97.7 F. Pain level now: 01/04. --22:36 Desi Olivas R.N. Weight: 65.7 kg stated. Height/Length: 62 inches Per Patient. BMI: 26.5. --22:29 Desi Olivas R.N. Medications Lisinopril Oral. --22:45 Desi Olivas R.N. Levothyroxine Sodium Oral. --22:45 Desi Olivas R.N. Primidone Oral. --22:45 Desi Olivas R.N. Testosterone. --22:46 Desi Olivas R.N. Anastrozole Oral. --22:46 Desi Olivas R.N. Nitrofurantoin Oral. --22:48 Desi Olivas R.N. Furosemide Oral. --22:48 Desi Olivas R.N. Carvedilol Phosphate ER Oral. --22:48 Desi Olivas R.N. Aricept Oral. --22:49 Desi Olivas R.N. Aspirin Oral. --22:49 Desi Olivas R.N. Lovastatin Oral. --22:49 Desi Olivas R.N. Primadone. --22:50 Desi Olivas R.N. Warfarin Sodium Oral. --22:50 Desi Olivas R.N. Isosorbide Mononitrate Oral. --22:50 Desi Olivas R.N. Allergies Labetalol HCl. --22:25 Desi Olivas R.N. History Arrived by private vehicle. Historian: family. Accompanied by family. This started just prior to arrival. Treatment CLIP BAKER: None. PAST MEDICAL HX: Immunizations: up-to-date. SOCIAL HX: Smoker- current status unknown. No alcohol use or drug use. No recent travel. No infectious disease exposure. No known contact with a sick individual. ABUSE ASSESSMENT: No report of abuse. NUTRITIONAL RISK ASSESSMENT: The nutritional risk assessment revealed no deficiencies. FALL RISK ASSESSMENT: Fall risk assessment completed. Risk factors identified include patient medications, age greater than 65 years, history of fall and impairment of mobility, hearing and cognition. Fall interventions initiated. Patient placed on stretcher. Side rails up x2. Brakes on Bed in low position. Patient visible from nurses' station and identified as a fall risk by ID band. Family at bedside. Call light in reach of patient and family. Instructed not to get up without assistance. FUNCTIONAL ASSESSMENT: Functional assessment performed: requires total care with the activities of daily living; wears glasses. uses home O2. LEARNING NEEDS ASSESSMENT: (learning through family). CSHWAB FALL SCALE: Schwab Fall Scale Score: 135 (45 or greater = High Risk). The patient has a history of falling (immediate or within the last 3 months), a secondary diagnosis, IV therapy/Heparin lock in place, ambulates using furniture, forgets limitations. The patient's gait is weak and impaired during transfer. --22:36 Desi Olivas R.N. PROBLEMS: Bursitis. Abdominal Pain. Chest Pain. UTI - Urinary Tract Infection. Congestive Heart Failure. Acute Myocardial Infarction. Renal Insufficiency. CVA - Cerebrovascular Accident. Tremors. Fall. Diarrhea. GI Bleeding. Immunizations. Hypercholesterolemia. TIA - Transient Ischemic Attack. Fecal Impaction. Constipation. Hypertension. Dementia. --22:52 Desi Olivas R.N. ADDITIONAL SURGERIES: Cholecystectomy. Hernia Repair. Kidney stents. Pacemaker. --22:52 Desi Olivas R.N. Interventions ID and allergy band on patient. --22:36 Desi Olivas R.N. PHYSICAL ASSESSMENT To room via wheelchair. Patient gowned. ( pt uses home O2 at 2L, pt has pacemaker in left upper chest, underlying rhythm per family afib). GENERAL / NEURO / PSYCH: Alert. Appears in no acute distress. The patient is disoriented to person. HEENT: Mucous membranes are pink. RESPIRATORY: Respirations not labored. Breath sounds within normal limits. CVS: Capillary refill less than 2 seconds. GI / : Abdomen soft and nontender. Bowel sounds within normal limits. SKIN: Skin is warm and dry. --22:38 Desi Olivas R.N. NURSING PROGRESS NOTES Pulse oximeter and NIBP monitor placed on patient; monitor alarms on. Patient gowned. Head of bed elevated. Reassurance given. Two patient identifiers checked. Call light placed in reach. Side rails up x 2. Bed placed in lowest position. Brakes of bed on. Patient ready for evaluation- chart flagged. --22:38 Desi Olivas R.N. 22:53 11/01/2016 Site #1 started via IV in the right forearm with an 20g angiocath; one attempt. Blood drawn: rainbow set. Labeled in the presence of the patient and sent to the lab. Saline lock flushed with 10 mL saline (placed by Rain). --22:58 Desi Olivas R.N. Patient transported to radiology by stretcher with [employer]. (00:Nov 02 2016). --00:07 Hermelinda Godinez 00:41 11/02/16. BP: 137/56. HR: 59. RR: 18. O2 saturation: 98%. --00:42 Desi Olivas R.N. Patient identifiers checked. Call light placed in reach. Side rails up x 2. Bed placed in lowest position. Brakes of bed on. Patient waiting for CT results. ( multiple family members at bedside, waiting ct results for plans of dispo from ED). --00:42 Desi Olivas R.N. 01:32 11/02/2016 IV Saline Lock Drip IV Discontinued: discontinued upon discharge. Total amount infused: 0 mL. IV patency established. IV site checked: no pain, redness, or swelling. IV flushed thoroughly. --01:33 Rain Rosales R.N. 01:33 11/02/2016 Site #1 removed upon discharge. Catheter intact. Manual pressure and bandage applied. --01:33 Rain Rosales R.N. DISPOSITION / DISCHARGE Condition at departure: improved and stable. Learning barriers present. Ability to learn limited by dementia; teaching performed with the family. Discharge instructions provided and reviewed with the family. Family verbalized understanding. Written instructions provided in Kazakh. The patient was discharged home and accompanied by family. He left the Emergency Department in a wheelchair and via private vehicle. Family member driving. --01:34 Rain Rosales R.N. 01:33 11/02/16. BP: 130/57 taken on the left arm, while sitting. HR: 59 (regular and bradycardic). RR: 16. O2 saturation: 98% on nasal cannula at 2 liters/minute. Temp: deferred. Pain level now: 0/10. --01:34 Rain Rosales R.N. Departure time: 131. --01:35 Rain Rosales R.N. Locked/Released at 11/02/2016 1:35 by Rain Rosales R.N.
--- NOTE | 2016-11-02 08:26 | DIAGNOSTIC IMAGING REPORT ---
PROCEDURE: CT ABDOMEN/PELVIS W/O CONTRAST INDICATION: NAUSEA TECHNIQUE: Axial CT images were obtained through the abdomen and pelvis without IV contrast. Coronal and sagittal reformations were created. COMPARISON: 06/08/2016 FINDINGS: Clear lung bases. Mildly enlarged heart with pacemaker leads present. Aortic valvular calcification. Surgically absent gallbladder. No hiatal hernia. The unenhanced appearance of the liver, bilateral renal atrophy and small renal cysts. This small hepatic cysts in the posterior right lobe. Fatty replacement of the pancreas. Bilateral renal ostia stents. Heavy aortic calcification. Diverticular disease throughout the colon. No acute inflammation. No evidence of small bowel obstruction. The stomach and mesentery are normal. Normal appearance to the adrenal glands and spleen. Mildly increased amount of stool in the rectum. Extensive diverticular disease in the sigmoid. Mildly enlarged prostate gland. Decompressed urinary bladder. Moderate calcific atherosclerosis. No free fluid. Intact osseous structures with degenerative changes. IMPRESSION: 1. No acute process. 2. Diffuse diverticulosis. No acute diverticulitis. 3. No evidence of appendicitis. 4. Heavy atherosclerosis including renal artery stents without evidence of acute end organ ischemia. 5. Preliminary report by Dr. Reggie Dumas of [facility] radiology. All CT scans at this facility use dose modulation, iterative reconstruction, and/or weight-based dosing when appropriate to reduce radiation dose to as low as reasonably achievable.
--- NOTE | 2016-11-02 08:38 | ED MAR SUMMARY ---
..... Medication Administration Record [facility] [address] [place] [id number] Patient: RISHABH BAZZI Visit ID: [id number] 86y, M Weight: 65.7 kg Height/Length: 62 in BMI: 26.5 ALLERGIES: Labetalol HCl
--- NOTE | 2016-11-02 08:38 | ED MED RECONCILIATION SUMMARY ---
Patient: RISHABH BAZZI Medication Reconciliation Report [facility] VisitID: [id number] [address] [place] [address] 86y, M Registration Date/Time: 11/01/2016 Weight: 65.7 kg Height/Length: 62 in. BMI: 26.5 ALLERGIES: Labetalol HCl The patient's Home Medications are listed below: CONTINUE TAKING THE FOLLOWING MEDICATIONS: Anastrozole Oral Aricept Oral Aspirin Oral Carvedilol Phosphate ER Oral Furosemide Oral Isosorbide Mononitrate Oral Levothyroxine Sodium Oral Lisinopril Oral Lovastatin Oral Nitrofurantoin Oral Primadone Primidone Oral Testosterone Warfarin Sodium Oral The source(s) of the original Home Medication information: Not obtained. The following Medications were given to the patient in the Emergency Department: None. The following Medications were prescribed to the patient: None.
--- NOTE | 2016-11-02 08:38 | ED DISCHARGE INSTRUCTIONS ---
Patient: RISHABH BAZZI General Instructions [facility] VisitID: [id number] [address] [place] [address] 86y, M Registration Date/Time: 11/01/2016 Acute right lower quadrant abdominal pain of unknown cause. INSTRUCTIONS Drink plenty of fluids. (The labs urinalysis and CT scan was good. No emergent cause of your abdominal pain has been found.). Warnings: GENERAL WARNINGS: Return or contact your physician immediately if your condition worsens or changes unexpectedly, if not improving as expected, or if other problems arise. Your Current Medications: CONTINUE TAKING THE FOLLOWING MEDICATIONS: Anastrozole Oral. Aricept Oral. Aspirin Oral. Carvedilol Phosphate ER Oral. Furosemide Oral. Isosorbide Mononitrate Oral. Levothyroxine Sodium Oral. Lisinopril Oral. Lovastatin Oral. Nitrofurantoin Oral. Primadone*. Primidone Oral. Testosterone*. Warfarin Sodium Oral. Follow-up: Follow up with your doctor in four days if not better. Understanding of the discharge instructions verbalized by patient and family. ADDITIONAL INFORMATION Abdominal Pain,Uncertain Cause [Male] Based on your visit today, the exact cause of your abdominalpain is not clear. Your exam and tests do not indicate a dangerous cause at this time. However, the signs of a serious problem may take more time to appear. Although your evaluation was reassuring today, sometimes early in the course of many conditions, exam and lab tests can appear normal. Therefore, it is important for you to watch for any new symptoms or worsening of your condition. Causes It may not be obvious what caused your symptoms. Pay attention to things that do seem to make your symptoms worse or better and discuss this with your doctor when you follow up. Diagnosis The evaluation of abdominal pain in the emergency department may onlyrequire an exam by the doctor or it may include blood, urine or imaging studies, depending on many factors. Sometimes exams and tests can identify a cause but in many cases, a clear cause is not found. Further testing at follow up visits may help to suggest a clear diagnosis. Home Care Rest as much as possible until your next exam. Try to avoid any medications (unless otherwise directed by your doctor), foods, activities, or other factors that you may have contributed to your symptoms. Try to eat foods that you know that you have tolerated well in the past. Certain diets may be recommended for some conditions that cause abdominal pain. However, since the cause of your symptoms may not be clear, discuss your diet more with your primary care provider or specialist for further recommendations. Eating several small meals per day as opposed to 2 or 3 larger meals may help. Monitor closely for anything that may make your symptoms worse or better. Pay close attention to symptoms below that may indicate worsening of your condition. Follow Up and Precautions See your doctoras instructed or sooneror if your symptoms are not improving.In some cases, you may need more testing. When to Seek Medical Attention Contact your doctor or see medical attention ifany of the following occur: Pain is becoming worse You are unable to take your medications due to excessive vomiting Swelling of the abdomen Fever of 100.4F (38C) or higher, or as directed by your health care provider Blood in vomit or bowel movements (dark red or black color) Jaundice (yellow color of eyes and skin) New onset of weakness, dizziness or fainting New onset of chest, arm, back, neck or jaw pain You have been given the following additional information: Abdominal Pain, Unknown Cause, (Male) (Electronically signed by Zaida Busby MD 11/02/2016 8:38)
--- NOTE | 2016-11-02 08:38 | ED MED RECONCILIATION SUMMARY ---
Patient: RISHABH BAZZI Medication Reconciliation Report [facility] VisitID: [id number] [address] [place] [address] 86y, M Registration Date/Time: 11/01/2016 Weight: 65.7 kg Height/Length: 62 in. BMI: 26.5 ALLERGIES: Labetalol HCl The patient's Home Medications are listed below: CONTINUE TAKING THE FOLLOWING MEDICATIONS: Anastrozole Oral Aricept Oral Aspirin Oral Carvedilol Phosphate ER Oral Furosemide Oral Isosorbide Mononitrate Oral Levothyroxine Sodium Oral Lisinopril Oral Lovastatin Oral Nitrofurantoin Oral Primadone Primidone Oral Testosterone Warfarin Sodium Oral The source(s) of the original Home Medication information: Not obtained. The following Medications were given to the patient in the Emergency Department: None. The following Medications were prescribed to the patient: None.
--- NOTE | 2016-11-02 08:38 | ED MAR SUMMARY ---
..... Medication Administration Record [facility] [address] [place], [place] [id number] Patient: RISHABH BAZZI Visit ID: [id number] 86y, M Weight: 65.7 kg Height/Length: 62 in BMI: 26.5 ALLERGIES: Labetalol HCl
== END 2016-11-02 01:32 | disposition home or self-care (01) ==
LOC: ED SRH 22:02
DX: R10.31 Right lower quadrant pain (principal); I50.9 Heart failure, unspecified; I10 Essential (primary) hypertension; Z86.73 Personal history of transient ischemic attack (TIA), and cerebral infarction without residual deficits; Z95.0 Presence of cardiac pacemaker; Z79.899 Other long term (current) drug therapy; Z79.82 Long term (current) use of aspirin; Z79.01 Long term (current) use of anticoagulants; Z88.8 Allergy status to other drugs, medicaments and biological substances
CPT/HCPCS: 90004; 90100; 91643; 92235; 93140; 94060; 95059